=== PATIENT | female | born 1940 | race Caucasian/White ===

== ENCOUNTER 2023-02-09 11:52 | Inpatient (IN) | payer OTHER, MEDICAID ==
[~2023-02-09] VITALS: Ht 157.5 cm; Wt 58.7 kg
[2023-02-09 11:58] VITALS: BP_SYST 135; PULSE 87; RESP 16; TEMP 97.3; O2SAT 97
[2023-02-09 12:48] LABS: BASOPHILS # (AUTO) 0.1 K/uL (0.0-0.2); BASOPHILS % (AUTO) 0.9 % (0.0-2.0); EOSINOPHILS # (AUTO) 0.2 K/uL (0.0-0.4); EOSINOPHILS % (AUTO) 2.4 % (0.0-4.0); HEMOGLOBIN 12.7 g/dL (12.0-16.0); LYMPHOCYTES # (AUTO) 1.8 K/uL (1.0-5.5); LYMPHOCYTES % (AUTO) 24.9 % (20.5-51.5); MEAN CORPUSCULAR HEMOGLOBIN 32 pg (27-31); MEAN CORPUSCULAR HGB CONC 33 % (32-36); MEAN CORPUSCULAR VOLUME 95 fL (79.0-98.0); MONOCYTES # (AUTO) 0.8 K/uL (0.0-1.0); MONOCYTES % (AUTO) 10.7 % (1.7-9.3); NEUTROPHILS # (AUTO) 4.3 K/uL (1.8-7.7); NEUTROPHILS % (AUTO) 61.1 % (40.0-70.0); PLATELET COUNT (AUTO) 194 K/uL (130-430); RED BLOOD CELL COUNT(AUTO) 4.02 MIL/uL (4.2-6.2); RED CELL DISTRIBUTION WIDTH 12.9 % (9.0-15.0); WHITE BLOOD COUNT (AUTO) 7.1 K/uL (4.8-10.8)
[2023-02-09 12:53] LABS: ANION GAP 5 (5-15); CALCIUM 9.2 mg/dL (8.4-11.0); CARBON DIOXIDE 28 mmol/L (23-29); CHLORIDE 97 mmol/L (98-107); CREATININE 0.62 mg/dL (0.55-1.30); GLUCOSE 75 mg/dL (74-106); POTASSIUM 3.8 mmol/L (3.5-5.1); SODIUM SERUM 130 mmol/L (136-145); UREA NITROGEN, BLOOD 13 mg/dL (8-21)
[2023-02-09 12:56] LABS: ACETONE, SERUM NEGATIVE (NEGATIVE)
[2023-02-09 12:59] LABS: INR 1.1 (0.8-1.2); PROTHROMBIN TIME 10.9 SECS (9.5-12.5)
[2023-02-09 13:08] LABS: ALANINE AMINOTRANSFERASE 11 U/L (12-78); ALBUMIN 2.8 g/dL (3.4-4.8); ASPARTATE AMINOTRANSFERASE 20 U/L (10-37); CARBAMAZEPINE (TEGRETOL) 4 ug/mL (4-12); CREATINE KINASE, TOTAL 44 U/L (26-192); FREE T4 (FREE THYROXINE) 0.8 ng/dL (0.6-1.6); THYROID STIMULATING HORMONE 27.29 uIu/mL (0.34-4.82); TOTAL BILIRUBIN 0.3 mg/dL (0.0-1.0); TOTAL PROTEIN, SERUM 6.7 g/dL (6.4-8.3)
[2023-02-09 13:11] LABS: VALPROIC ACID 107 ug/mL (50-100)
[2023-02-09 13:32] LABS: BILIRUBIN,URINE NEGATIVE (NEGATIVE); COLOR,URINE YELLOW (YELLOW); GLUCOSE,URINE NEGATIVE (NEGATIVE); KETONES,URINE NEGATIVE (NEGATIVE); LEUKOCYTE ESTERASE ,URINE 3+ (NEGATIVE); NITRITE, URINE POSITIVE (NEGATIVE); PH,URINE 7.5 (5.0-8.0); PROTEIN URINE NEGATIVE (NEGATIVE); UROBILINOGEN,URINE 0.2 (0.2-1.0)
[2023-02-09 13:36] LABS: BLOOD, URINE TRACE (NEGATIVE); CLARITY/URINE HAZY (CLEAR)
[2023-02-09 13:50] LABS: BACTERIA,URINE MANY /HPF (None Seen); MUCUS,URINE 1+ /LPF (None Seen); WBC,URINE 20-50 /HPF (0-3)
[2023-02-09] MEDS ORDERED: cefTRIAXone 1 GM in D5W 50 ML IV ONE (14:00)
[2023-02-09] MEDS ORDERED: CEFEPIME 1 GM in D5W 50 ML IV ONE (14:15)
[2023-02-09] MEDS ORDERED: CEFEPIME 1 GM/VIAL (MAXIPIME) ONE (14:46)
[2023-02-09] MEDS: D5NS 1,000 ML IV SCH (15:06)
[2023-02-09] MEDS ORDERED: ACETAMINOPHEN 325 MG TABLET PO PRN (19:30)
[2023-02-09] MEDS: CALCIUM CARBONATE 500 MG/ TAB.CHEW PO SCH (21:06)
[2023-02-09] MEDS: DIVALPROEX SODIUM 500 MG TABLET( DEPAKOTE) PO SCH (21:07)
[2023-02-09] MEDS: CEFEPIME 1 GM in D5W 50 ML IV SCH (21:07)
[2023-02-09 23:33] VITALS: BP_SYST 153; PULSE 87; RESP 18; TEMP 97.8
[2023-02-10] VITALS: BP_SYST 150; PULSE 81; RESP 16; TEMP 98.2; O2SAT 96
[2023-02-10] MEDS: D5NS 1,000 ML IV SCH ×2 (03:20→16:40)
[2023-02-10] MEDS: LEVOTHYROXINE SODIUM 0.05 MG TABLET PO SCH (06:34)
[2023-02-10 06:54] LABS: BASOPHILS % (AUTO) 0.8 % (0.0-2.0); EOSINOPHILS # (AUTO) 0.2 K/uL (0.0-0.4); EOSINOPHILS % (AUTO) 4.2 % (0.0-4.0); HEMATOCRIT 37.3 % (36-48); HEMOGLOBIN 12.3 g/dL (12.0-16.0); LYMPHOCYTES # (AUTO) 1.3 K/uL (1.0-5.5); MEAN CORPUSCULAR HEMOGLOBIN 31 pg (27-31); MEAN CORPUSCULAR HGB CONC 33 % (32-36); MEAN CORPUSCULAR VOLUME 94 fL (79.0-98.0); MONOCYTES # (AUTO) 0.5 K/uL (0.0-1.0); MONOCYTES % (AUTO) 10.8 % (1.7-9.3); NEUTROPHILS # (AUTO) 2.3 K/uL (1.8-7.7); NEUTROPHILS % (AUTO) 54.2 % (40.0-70.0); PLATELET COUNT (AUTO) 204 K/uL (130-430); RED BLOOD CELL COUNT(AUTO) 3.95 MIL/uL (4.2-6.2); RED CELL DISTRIBUTION WIDTH 13.4 % (9.0-15.0); WHITE BLOOD COUNT (AUTO) 4.2 K/uL (4.8-10.8)
[2023-02-10 07:05] LABS: ANION GAP 3 (5-15); CARBON DIOXIDE 31 mmol/L (23-29); CHLORIDE 101 mmol/L (98-107); CREATININE 0.54 mg/dL (0.55-1.30); GLUCOSE 88 mg/dL (74-106); SODIUM SERUM 135 mmol/L (136-145); UREA NITROGEN, BLOOD 9 mg/dL (8-21)
[2023-02-10] MEDS: CEFEPIME 1 GM in D5W 50 ML IV SCH ×2 (09:09→21:03)
[2023-02-10] MEDS: CALCIUM CARBONATE 500 MG/ TAB.CHEW PO SCH ×2 (09:10→21:03)
[2023-02-10] MEDS: CHOLECALCIFEROL (VITAMIN D3) 5,000 UNIT TABLET PO SCH (09:10)
[2023-02-10] MEDS: DIVALPROEX SODIUM 500 MG TABLET( DEPAKOTE) PO SCH ×2 (09:10→21:03)
[2023-02-10] MEDS: DOCUSATE SODIUM 100 MG CAPSULE PO SCH (09:10)
[2023-02-10] MEDS: CLOPIDOGREL BISULFATE 75 MG TABLET PO SCH (09:10)
[2023-02-10 12:59] VITALS: BP_SYST 171; PULSE 86; RESP 18; TEMP 97.7; O2SAT 97
[2023-02-10 16:27] VITALS: BP_SYST 142; PULSE 91; RESP 18; TEMP 97.7; O2SAT 97
[2023-02-10] MEDS: LOSARTAN POTASSIUM 50 MG TABLET (COZAAR) PO SCH (21:04)
[2023-02-10 21:46] VITALS: BP_SYST 154; PULSE 98; RESP 18; TEMP 97.8; O2SAT 96
[2023-02-11 00:57] VITALS: BP_SYST 134; PULSE 85; RESP 18; TEMP 97.9; O2SAT 97
[2023-02-11] MEDS: LEVOTHYROXINE SODIUM 0.05 MG TABLET PO SCH (06:12)
[2023-02-11] MEDS: D5NS 1,000 ML IV SCH ×2 (06:12→20:58)
[2023-02-11] MEDS: DOCUSATE SODIUM 100 MG CAPSULE PO SCH (10:39)
[2023-02-11] MEDS: CEFEPIME 1 GM in D5W 50 ML IV SCH ×2 (10:39→21:56)
[2023-02-11] MEDS: CLOPIDOGREL BISULFATE 75 MG TABLET PO SCH (10:39)
[2023-02-11] MEDS: CALCIUM CARBONATE 500 MG/ TAB.CHEW PO SCH ×2 (10:39→20:59)
[2023-02-11] MEDS: CHOLECALCIFEROL (VITAMIN D3) 5,000 UNIT TABLET PO SCH (10:40)
[2023-02-11] MEDS: DIVALPROEX SODIUM 500 MG TABLET( DEPAKOTE) PO SCH ×2 (10:40→20:59)
[2023-02-11] MEDS: LOSARTAN POTASSIUM 50 MG TABLET (COZAAR) PO SCH ×2 (10:40→21:00)
[2023-02-11 12:00] VITALS: BP_SYST 143; PULSE 87; RESP 19; TEMP 97.7; O2SAT 97
[2023-02-11 16:34] VITALS: BP_SYST 139; PULSE 86; RESP 18; TEMP 97.8; O2SAT 98
[2023-02-11 19:00] VITALS: O2SAT 95
[2023-02-11 20:00] VITALS: BP_SYST 135; PULSE 92; RESP 18; TEMP 97.3; O2SAT 95
[2023-02-12 00:37] VITALS: BP_SYST 137; PULSE 93; RESP 16; TEMP 97.7; O2SAT 96
[2023-02-12 05:44] LABS: BASOPHILS # (AUTO) 0.1 K/uL (0.0-0.2); EOSINOPHILS # (AUTO) 0.2 K/uL (0.0-0.4); EOSINOPHILS % (AUTO) 3.5 % (0.0-4.0); HEMATOCRIT 32.9 % (36-48); HEMOGLOBIN 11.2 g/dL (12.0-16.0); LYMPHOCYTES # (AUTO) 1.7 K/uL (1.0-5.5); LYMPHOCYTES % (AUTO) 29.6 % (20.5-51.5); MEAN CORPUSCULAR HEMOGLOBIN 32 pg (27-31); MEAN CORPUSCULAR HGB CONC 34 % (32-36); MEAN CORPUSCULAR VOLUME 93 fL (79.0-98.0); MONOCYTES # (AUTO) 0.6 K/uL (0.0-1.0); MONOCYTES % (AUTO) 10.6 % (1.7-9.3); NEUTROPHILS # (AUTO) 3.3 K/uL (1.8-7.7); NEUTROPHILS % (AUTO) 55.3 % (40.0-70.0); PLATELET COUNT (AUTO) 185 K/uL (130-430); RED BLOOD CELL COUNT(AUTO) 3.53 MIL/uL (4.2-6.2); WHITE BLOOD COUNT (AUTO) 5.9 K/uL (4.8-10.8)
[2023-02-12 05:53] LABS: ANION GAP 6 (5-15); CALCIUM 8.9 mg/dL (8.4-11.0); CARBON DIOXIDE 27 mmol/L (23-29); CHLORIDE 101 mmol/L (98-107); CREATININE 0.59 mg/dL (0.55-1.30); GLUCOSE 93 mg/dL (74-106); POTASSIUM 4.1 mmol/L (3.5-5.1); SODIUM SERUM 134 mmol/L (136-145); UREA NITROGEN, BLOOD 10 mg/dL (8-21)
[2023-02-12] MEDS: LEVOTHYROXINE SODIUM 0.05 MG TABLET PO SCH (06:22)
[2023-02-12 07:59] VITALS: BP_SYST 128; PULSE 95; TEMP 97.8; O2SAT 98
[2023-02-12] MEDS: CALCIUM CARBONATE 500 MG/ TAB.CHEW PO SCH (08:53)
[2023-02-12] MEDS: DIVALPROEX SODIUM 500 MG TABLET( DEPAKOTE) PO SCH (08:53)
[2023-02-12] MEDS: CLOPIDOGREL BISULFATE 75 MG TABLET PO SCH (08:53)
[2023-02-12] MEDS: CHOLECALCIFEROL (VITAMIN D3) 5,000 UNIT TABLET PO SCH (08:54)
[2023-02-12] MEDS: LOSARTAN POTASSIUM 50 MG TABLET (COZAAR) PO SCH (08:54)
[2023-02-12] MEDS: DOCUSATE SODIUM 100 MG CAPSULE PO SCH (08:54)
[2023-02-12] MEDS: CEFEPIME 1 GM in D5W 50 ML IV SCH (08:54)
[2023-02-12] MEDS: D5NS 1,000 ML IV SCH (08:55)
[2023-02-12 12:33] VITALS: BP_SYST 132; PULSE 94; RESP 17; TEMP 97.6; O2SAT 97
[2023-02-12] MEDS ORDERED: cephALEXin 500 MG CAPSULE PO ONE (12:45)
[2023-02-12 14:52] VITALS: BP_SYST 150; PULSE 101; RESP 16; TEMP 98.1; O2SAT 95
[2023-02-12 16:33] VITALS: BP_SYST 129; PULSE 96; RESP 18; TEMP 97.7; O2SAT 98
[2023-02-12] MEDS ORDERED: cloNIDine HCL 0.1 MG TABLET ONE (17:48)
[2023-02-12] MEDS ORDERED: cephALEXin 500 MG CAPSULE PO SCH (18:00)
[2023-02-12] MEDS ORDERED: cloNIDine HCL 0.1 MG TABLET PO ONE (18:00)
== END 2023-02-12 18:05 | DRG 640 ==
LOC: SED 11:52 → SMU 13:52
PROVIDERS: ADMIT Family Medicine; ATTEND Family Medicine
DX: E87.1 Hypo-osmolality and hyponatremia (principal); G93.41 Metabolic encephalopathy; N39.0 Urinary tract infection, site not specified; R62.7 Adult failure to thrive; E03.9 Hypothyroidism, unspecified; I10 Essential (primary) hypertension; E78.5 Hyperlipidemia, unspecified; G80.9 Cerebral palsy, unspecified; Z68.23 Body mass index [BMI] 23.0-23.9, adult
CPT/HCPCS: 36415; 71045; 80048; 80053; 80156; 80164; 81000; 81001; 81015; 82009; 82550; 83605; 83735; 84439; 84443; 84484; 85025; 85610-TC; 85730-TC; 87040; 87081; 87086; 93005; 97110-GP; 97112-GP; 97530-GP; 99285; J0692; J7060